=== PATIENT | female | born 1990 | race Caucasian/White ===

== ENCOUNTER 2019-01-19 08:06 | Emergency (ER) | payer MEDICAID ==
[2019-01-19 09:10] LABS: ABSOLUTE EOSINOPHILS # (AUTO) 0.1 10^3/uL (0.0-0.6); ABSOLUTE LYMPHOCYTES (AUTO) 2.4 10^3/uL (0.5-4.7); ABSOLUTE MONOCYTES (AUTO) 0.5 10^3/uL (0.1-1.4); ABSOLUTE NEUT (AUTO) 7.9 10^3/uL (1.7-8.2); BASOPHILS % (AUTO) 0.3 % (0-2); EOSINOPHILS % (AUTO) 0.7 % (0-6); HEMATOCRIT 35.2 % (36.0-47.0); HEMOGLOBIN 12.1 g/dL (12.0-15.5); LYMPHOCYTES % (AUTO) 21.9 % (13-45); MEAN CORPUSCULAR HEMOGLOBIN 30.5 pg (27.0-33.4); MEAN CORPUSCULAR HGB CONC 34.5 g/dL (32.0-36.0); MEAN CORPUSCULAR VOLUME 89 fl (80-97); PLATELET COUNT 234 10^3/uL (150-450); RED BLOOD COUNT 3.97 10^6/uL (3.72-5.28); RED CELL DISTRIBUTION WIDTH 12.8 % (11.5-14.0); SEGMENTED NEUTROPHILS % (AUTO) 72.1 % (42-78); TOTAL CELLS COUNTED % (AUTO) 100 %
[2019-01-19] MEDS ORDERED: METOCLOPRAMIDE HCL INJ/PF 10 MG/2 ML SDV IV ONE ×2 (09:21→11:01)
[2019-01-19] MEDS ORDERED: NORMAL SALINE 1000 ML 1,000 ML IV ONE (09:21)
[2019-01-19 09:38] LABS: APPEARANCE,URINE CLOUDY; BILIRUBIN,URINE NEGATIVE (NEGATIVE); COLOR,URINE AMBER; GLUCOSE, URINE NEGATIVE (NEGATIVE); KETONES,URINE NEGATIVE (NEGATIVE); LEUKOCYTE ESTERASE,URINE NEGATIVE (NEGATIVE); NITRITE,URINE POSITIVE (NEGATIVE); PROTEIN,URINE 100 mg/dL (NEGATIVE); URINE SPECIFIC GRAVITY 1.023
[2019-01-19 09:47] LABS: ALANINE AMINOTRANSFERASE 15 U/L (9-52); ALBUMIN 3.6 g/dL (3.5-5.0); ALKALINE PHOSPHATASE 52 U/L (38-126); ANION GAP 10 (5-19); ASPARTATE AMINO TRANSFERASE 18 U/L (14-36); BILIRUBIN,DIRECT 0.2 mg/dL (0.0-0.4); BILIRUBIN,TOTAL 0.4 mg/dL (0.2-1.3); BLOOD UREA NITROGEN 6 mg/dL (7-20); CALCIUM 9.3 mg/dL (8.4-10.2); CARBON DIOXIDE 22 mmol/L (22-30); CHLORIDE 104 mmol/L (98-107); GLUCOSE 119 mg/dL (75-110); LIPASE 117.8 U/L (23-300); POTASSIUM 3.5 mmol/L (3.6-5.0); SODIUM 135.9 mmol/L (137-145); TOTAL PROTEIN 6.4 g/dL (6.3-8.2)
[2019-01-19] MEDS ORDERED: CEFTRIAXONE 1 GM/D5W RTU 1 GM/50 ML RTUPB IV ONE (11:00)
[2019-01-19] MEDS ORDERED: MORPHINE SULFATE 10 MG/ML INJ IV ONE (11:01)
[2019-01-19] MEDS ORDERED: RINGERS SOLUTION,LACTATED 1,000 ML IV ONE (11:03)
--- NOTE | 2019-01-19 12:04 | RADIOLOGY REPORT (SQ) ---
EXAM DESCRIPTION: U/S RETROPERITON (RENAL/AORTA) COMPLETED DATE/TIME: 01/19/2019 11:42 am REASON FOR STUDY: right kidney pain, PMH kidney stones COMPARISON: None. TECHNIQUE: Dynamic and static grayscale images acquired of the kidneys and bladder and recorded on P ACS. Additional selected color Doppler and spectral images recorded. LIMITATIONS: None. FINDINGS: RIGHT KIDNEY: The right kidney measures 11.5 x 5.8 x 3.9 cm, normal size. Normal echogen icity. No solid or suspicious masses. Mild dilatation of the renal pelvis measures 1.5 cm. LEFT KIDNEY: Left kidney measures 11.6 x 4.7 x 4.6 cm, normal size. Normal echogenicity. No solid or suspicious masses. No hydronephrosis. No calcifications. BLADDER: The urinary bladder is empty. OTHER FINDINGS: The patient is 11 weeks . heart activity visualized. IMPRESSION: 1. The right renal pelvis is mildly dilated. 2. No evidence of hydronephrosis on the left. TECHNICAL DOCUMENTATION: JOB ID: [id number] [employer]- All Rights Reserved Reading location - IP/workstation name: [email or web address]
[2019-01-19 13:42] VITALS: BP 100/61
--- NOTE | 2019-01-19 18:58 | ER Document Report ---
Entered by TANISHA CHERRY SCRIBE 01/19/19 [id number] Acting as scribe for:SIMONE FERGUSON MD ED General - General Chief Complaint: Flank Pain Stated Complaint: FLANK PAIN Time Seen by Provider: 01/19/19 09:11 Primary Care Provider: KIM TRUJILLO MD [Primary Care Provider] - Follow up as needed Mode of Arrival: Ambulatory Information source: Patient Notes: Patient is a 28 year old female, currently 11 weeks , with a history of kidney stones presents to the emergency department complaining of multiple symptoms including right flank pain, urinary urgency and burning. Patient states she developed urinary urgency and burning around 0030, 2 days ago. Patient states she proceeded to take Azo and set up an appointment to see her doctor later this week. She states this morning, she developed severe, constant, sharp right flank pain and right lower quadrant abdominal pain. She also complains of vomiting but is unsure if it due to being or her new onset of symptoms. She denies any fevers. Patient is . TRAVEL OUTSIDE OF THE [place] IN LAST 30 DAYS: No - Related Data Allergies/Adverse Reactions: Penicillins Allergy (Mild, Verified 01/19/19 10:16) Generalized rash Past Medical History - General Information source: Patient - Social History Smoking Status: Unknown if Ever Smoked Chew tobacco use (# tins/day): No Frequency of alcohol use: None Drug Abuse: None Family History: Reviewed & Not Pertinent Patient has suicidal ideation: No Patient has homicidal ideation: No - Past Medical History Cardiac Medical History: Reports: Other - SVT Renal/ Medical History: Reports: Hx Kidney Stones - reports appearance of passing stone via CT scan Past Surgical History: Reports: Hx Cardiac Surgery - SVT subsequent laser ablation, Hx Gynecologic Surgery - leep, Hx Oral Surgery Review of Systems - Review of Systems Constitutional: No symptoms reported EENT: No symptoms reported Cardiovascular: No symptoms reported Respiratory: No symptoms reported Gastrointestinal: See HPI, Abdominal pain Genitourinary: See HPI, Burning, Flank pain, Urgency Female Genitourinary: No symptoms reported Musculoskeletal: No symptoms reported Skin: No symptoms reported Hematologic/Lymphatic: No symptoms reported Neurological/Psychological: No symptoms reported -: Yes All other systems reviewed and negative Physical Exam - Vital signs Vitals: Temp Pulse Resp BP Pulse Ox 97.8 F 120 H 20 111/69 100 01/19/19 08:16 01/19/19 08:16 01/19/19 08:16 01/19/19 08:16 01/19/19 08:16 - Notes Notes: GENERAL: Alert, interacts well. No acute distress. HEAD: Normocephalic, atraumatic. EYES: Pupils equal, round, and reactive to light. Extraocular movements intact. ENT: Oral mucosa moist, tongue midline. NECK: Full range of motion. Supple. Trachea midline. LUNGS: Clear to auscultation bilaterally, no wheezes, rales, or rhonchi. No respiratory distress. HEART: Regular rate and rhythm. No murmurs, gallops, or rubs. ABDOMEN: Soft, palpable gravid uterus.RLQ tenderness to palpation. Bowel sounds present in all 4 quadrants. No guarding, rigidity, or rebound. EXTREMITIES: Moves all 4 extremities spontaneously. NEUROLOGICAL: Alert and oriented x3. Normal speech. PSYCH: Normal affect, normal mood. SKIN: Warm, dry, normal turgor. No rashes or lesions noted. BACK: Right CVA tenderness to percussion. Course - Re-evaluation Re-evalutation: 01/19/19 13:34 The patient did not have any reaction to the IV Rocephin. The ultrasound showed mildly dilated right renal pelvis. I discussed this with the radiologist and she felt that it was likely physiologic hydronephrosis related to the , but that the patient should have urology follow-up. - Vital Signs Vital signs: Temp Pulse Resp BP Pulse Ox 97.8 F 120 H 20 111/69 100 01/19/19 08:16 01/19/19 08:16 01/19/19 08:16 01/19/19 08:16 01/19/19 08:16 - Laboratory Result Diagrams: 01/19/19 08:55 01/19/19 08:55 Laboratory results interpreted by me: 01/19/19 01/19/19 01/19/19 08:55 08:55 08:55 WBC 11.0 H Hct 35.2 L Sodium 135.9 L Potassium 3.5 L BUN 6 L Creatinine 0.39 L Glucose 119 H Serum HCG, Qual POSITIVE H Urine Protein Urine Blood Urine Nitrite Urine Urobilinogen 01/19/19 08:55 WBC Hct Sodium Potassium BUN Creatinine Glucose Serum HCG, Qual Urine Protein 100 H Urine Blood LARGE H Urine Nitrite POSITIVE H Urine Urobilinogen 4.0 H - Diagnostic Test Radiology reviewed: Reports reviewed - Right renal ultrasound shows a mildly dilated right renal pelvis, the left renal pelvis is not dilated. Discharge - Discharge Clinical Impression: Pyelonephritis affecting in first trimester Condition: Stable Disposition: HOME, SELF-CARE Additional Instructions: Pyelonephritis Your evaluation shows evidence of pyelonephritis. This is an infection in the kidney. Typical symptoms are fever, pain in the flank, pain on urination, and frequent urination. Many cases of pyelonephritis can be treated at home. Hospital care may be necessary for patients who are very ill, or elderly or . Pyelonephritis is treated with antibiotics. Be sure to take all the medication as prescribed. Drink plenty of liquids (about three quarts per day). You may take acetaminophen for fever. You should feel significantly improved within two days. You should have a recheck of your urine in about one week to insure that the infection is gone. Return for a re-examination if your symptoms worsen in any way -- such as high fever, shaking chills, severe weakness or dizziness, severe pain, or inability to pass your urine. Take the medications as prescribed. Drink plenty of fluids throughout the day in the evening for the next several days. Take Tylenol for your back pain as needed. Call [facility] office today to schedule an appointment this week to evaluate your right hydronephrosis. Follow-up with your primary care provider this week for recheck if you cannot get in to see the urologist. RETURN TO THE EMERGENCY ROOM IF ANY NEW OR WORSENING SYMPTOMS. Prescriptions: Cephalexin Monohydrate [Keflex 500 mg Capsule] 500 mg PO QID #28 capsule Referrals: [facility] [Provider Group] - Follow up in 3-5 days (Call today to schedule an appointment this week.) KIM TRJUILLO MD [Primary Care Provider] - Follow up in 3-5 days Scribe Attestation: 01/19/19 11:03 I personally performed the services described in the documentation, reviewed and edited the documentation which was dictated to the scribe in my presence, and it accurately records my words and actions. I personally performed the services described in the documentation, reviewed and edited the documentation which was dictated to the scribe in my presence, and it accurately records my words and actions.
== END 2019-01-19 13:55 | disposition home or self-care (01) ==
LOC: ER 08:06
DX: O23.01 Infections of kidney in pregnancy, first trimester (principal); O21.9 Vomiting of pregnancy, unspecified; O26.891 Other specified pregnancy related conditions, first trimester; R10.9 Unspecified abdominal pain; R39.15 Urgency of urination; R30.9 Painful micturition, unspecified; R10.31 Right lower quadrant pain; Z3A.11 11 weeks gestation of pregnancy
CPT/HCPCS: 96376; 99284; 96361; 96375; 96365; 36415; 87086; 83690; 84703; 85025; 87088; 80053; 81001; 87186; 76770; J2765; J2270; J7030; J7120; J0696

== ENCOUNTER 2019-06-22 11:31 | Outpatient (CLI) | payer MEDICAID ==
[2019-06-22 12:50] LABS: AMORPHOUS SEDIMENT,URINE TRACE /HPF; APPEARANCE,URINE CLOUDY; BILIRUBIN,URINE NEGATIVE (NEGATIVE); COLOR,URINE YELLOW; GLUCOSE, URINE NEGATIVE (NEGATIVE); KETONES,URINE NEGATIVE (NEGATIVE); LEUKOCYTE ESTERASE,URINE NEGATIVE (NEGATIVE); NITRITE,URINE NEGATIVE (NEGATIVE); PROTEIN,URINE NEGATIVE (NEGATIVE); UROBILINOGEN,URINE NEGATIVE mg/dL (<2.0)
[2019-06-22 13:16] LABS: URINE AMPHETAMINES SCREEN NEGATIVE; URINE BARBITURATES SCREEN NEGATIVE; URINE BENZODIAZEPINES SCREEN NEGATIVE; URINE COCAINE SCREEN NEGATIVE; URINE MARIJUANA (THC) SCREEN NEGATIVE; URINE METHADONE SCREEN NEGATIVE; URINE PHENCYCLIDINE SCREEN NEGATIVE
[2019-06-22] MEDS ORDERED: HYDROXYZINE PAMOATE 50 MG CAPSULE ONE (13:20)
[2019-06-22] MEDS ORDERED: HYDROXYZINE PAMOATE 25 MG CAPSULE PO ONE ×2 (13:31→14:00)
--- NOTE | 2019-06-22 14:17 | Non Stress Test Report ---
Non Stress Test Datetime Report Generated by CPN: 06/22/2019 14:17 DEMOGRAPHIC EGA NST: 33.3 INDICATION Indication for Study: Ordered by Provider Indication for Study (NST) Other: sent from office MONITORING Monitor Explained: Monitor Explained; Test Explained; Patient Verbalized Understanding Time on Monitor: 06/22/2019 12:10 Time off Monitor: 06/22/2019 13:16 NST Duration: 66 NST INTERVENTIONS NST Interventions: None Physician Notified NST: A Naik CNM BABY A: [id number] BABY A Movement : Present Contraction Frequency : irritability FHR Baseline : 135 Accelerations : 15X15 Decelerations : None Variability : Moderate 6-25bpm NST Review: Meets Criteria for Reactive NST NST Review and Verified By : D Bellavance RN NST Results: Reactive NST REPORT Report Trigger: Send Report
== END 2019-06-22 13:35 | disposition home or self-care (01) ==
LOC: LC 11:31
PROVIDERS: ATTEND Obstetrics & Gynecology
PROC: 4A1HXCZ Monitoring of Products of Conception, Cardiac Rate, External Approach (ICD-10-PCS; principal; 2019-06-22)
DX: O60.03 Preterm labor without delivery, third trimester (principal); Z3A.33 33 weeks gestation of pregnancy
CPT/HCPCS: 59025; 81001; 80307; J3490 ×2

== ENCOUNTER 2019-06-25 20:12 | Outpatient (CLI) | payer MEDICAID ==
[2019-06-25 20:51] LABS: APPEARANCE,URINE SLIGHTLY-CLOUDY; BILIRUBIN,URINE NEGATIVE (NEGATIVE); COLOR,URINE YELLOW; GLUCOSE, URINE NEGATIVE (NEGATIVE); KETONES,URINE TRACE mg/dL (NEGATIVE); LEUKOCYTE ESTERASE,URINE NEGATIVE (NEGATIVE); NITRITE,URINE NEGATIVE (NEGATIVE); PROTEIN,URINE NEGATIVE (NEGATIVE); URINE SPECIFIC GRAVITY 1.012; UROBILINOGEN,URINE NEGATIVE mg/dL (<2.0)
[2019-06-25 21:07] LABS: URINE AMPHETAMINES SCREEN NEGATIVE; URINE BARBITURATES SCREEN NEGATIVE; URINE BENZODIAZEPINES SCREEN NEGATIVE; URINE COCAINE SCREEN NEGATIVE; URINE MARIJUANA (THC) SCREEN NEGATIVE; URINE METHADONE SCREEN NEGATIVE; URINE PHENCYCLIDINE SCREEN NEGATIVE
== END 2019-06-25 22:02 | disposition home or self-care (01) ==
LOC: LC 20:12
PROVIDERS: ATTEND Obstetrics & Gynecology
PROC: 4A1HXCZ Monitoring of Products of Conception, Cardiac Rate, External Approach (ICD-10-PCS; principal; 2019-06-25)
DX: O47.03 False labor before 37 completed weeks of gestation, third trimester (principal); Z3A.34 34 weeks gestation of pregnancy
CPT/HCPCS: 59025; 80307; 81001

== ENCOUNTER 2019-08-03 10:43 | Outpatient (CLI) | payer MEDICAID ==
--- NOTE | 2019-08-03 10:45 | Non Stress Test Report ---
Non Stress Test Datetime Report Generated by CPN: 08/03/2019 10:45 DEMOGRAPHIC EGA NST: 33.6 INDICATION Indication for Study: Ordered by Provider MONITORING Monitor Explained: Monitor Explained; Test Explained; Patient Verbalized Understanding Time on Monitor: 06/25/2019 20:29 Time off Monitor: 06/25/2019 21:49 NST Duration: 80 NST INTERVENTIONS NST Interventions: PO Hydration Physician Notified NST: Brown BABY A: [id number] BABY A Movement : Present Contraction Frequency : 3-6 FHR Baseline : 125 Decelerations : None Variability : Moderate 6-25bpm NST Review: Meets Criteria for Reactive NST NST Review and Verified By : ORIANA Chavez NST Results: Reactive NST REPORT Report Trigger: Send Report
[2019-08-03 11:37] LABS: APPEARANCE,URINE CLEAR; BILIRUBIN,URINE NEGATIVE (NEGATIVE); COLOR,URINE YELLOW; GLUCOSE, URINE NEGATIVE (NEGATIVE); KETONES,URINE NEGATIVE (NEGATIVE); LEUKOCYTE ESTERASE,URINE NEGATIVE (NEGATIVE); NITRITE,URINE NEGATIVE (NEGATIVE); PROTEIN,URINE NEGATIVE (NEGATIVE); URINE SPECIFIC GRAVITY 1.006; UROBILINOGEN,URINE NEGATIVE mg/dL (<2.0)
[2019-08-03 11:52] LABS: URINE AMPHETAMINES SCREEN NEGATIVE; URINE BARBITURATES SCREEN NEGATIVE; URINE BENZODIAZEPINES SCREEN NEGATIVE; URINE COCAINE SCREEN NEGATIVE; URINE MARIJUANA (THC) SCREEN NEGATIVE; URINE METHADONE SCREEN NEGATIVE; URINE PHENCYCLIDINE SCREEN NEGATIVE
[2019-08-03] MEDS ORDERED: HYDROXYZINE PAMOATE 50 MG CAPSULE PO ONE (12:33)
[2019-08-03] MEDS ORDERED: HYDROXYZINE PAMOATE 50 MG CAPSULE ONE (12:34)
--- NOTE | 2019-08-03 12:38 | Non Stress Test Report ---
Non Stress Test Datetime Report Generated by CPN: 08/03/2019 12:37 DEMOGRAPHIC EGA NST: 39.3 INDICATION Indication for Study: Other - Please document "Reason for NST Other" in box below. Indication for Study (NST) Other: LC MONITORING Monitor Explained: Monitor Explained; Test Explained; Patient Verbalized Understanding Time on Monitor: 08/03/2019 10:59 NST INTERVENTIONS NST Interventions: PO Hydration Physician Notified NST: N Pardo CNM BABY A Movement : Present Contraction Frequency : irregular FHR Baseline : 125 Accelerations : 15X15 Decelerations : None Variability : Moderate 6-25bpm NST Review: Meets Criteria for Reactive NST NST Review and Verified By : Rita Purcell RN NST Results: Reactive NST REPORT Report Trigger: Send Report
== END 2019-08-03 12:40 | disposition home or self-care (01) ==
LOC: LC 10:43
PROVIDERS: ATTEND Obstetrics & Gynecology
PROC: 4A1HXCZ Monitoring of Products of Conception, Cardiac Rate, External Approach (ICD-10-PCS; principal; 2019-08-03)
DX: Z34.83 Encounter for supervision of other normal pregnancy, third trimester (principal); Z3A.39 39 weeks gestation of pregnancy
CPT/HCPCS: 59025; 81005; 80307; J3490

== ENCOUNTER 2019-08-09 06:19 | Outpatient (CLI) | payer MEDICAID ==
[2019-08-09 06:53] LABS: APPEARANCE,URINE CLEAR; BILIRUBIN,URINE NEGATIVE (NEGATIVE); COLOR,URINE STRAW; GLUCOSE, URINE NEGATIVE (NEGATIVE); KETONES,URINE NEGATIVE (NEGATIVE); LEUKOCYTE ESTERASE,URINE NEGATIVE (NEGATIVE); NITRITE,URINE NEGATIVE (NEGATIVE); PROTEIN,URINE NEGATIVE (NEGATIVE); URINE SPECIFIC GRAVITY 1.004; UROBILINOGEN,URINE NEGATIVE mg/dL (<2.0)
[2019-08-09 08:16] LABS: URINE AMPHETAMINES SCREEN NEGATIVE; URINE BARBITURATES SCREEN NEGATIVE; URINE BENZODIAZEPINES SCREEN NEGATIVE; URINE COCAINE SCREEN NEGATIVE; URINE MARIJUANA (THC) SCREEN NEGATIVE; URINE METHADONE SCREEN NEGATIVE; URINE PHENCYCLIDINE SCREEN NEGATIVE
--- NOTE | 2019-08-09 08:37 | Non Stress Test Report ---
Non Stress Test Datetime Report Generated by CPN: 08/09/2019 08:37 DEMOGRAPHIC EGA NST: 40.2 INDICATION Indication for Study: Ordered by Provider Indication for Study (NST) Other: LC VITAL SIGNS Temperature - NST: 98.5 Pulse - NST: 100 RESP - NST: 16 NBPSYS NST: 107 NBPDIA NST: 68 MONITORING Monitor Explained: Monitor Explained; Test Explained; Patient Verbalized Understanding Time on Monitor: 08/09/2019 06:50 Time off Monitor: 08/09/2019 07:40 NST Duration: 50 NST INTERVENTIONS NST Interventions: PO Hydration Physician Notified NST: A Naik CNM BABY A: [id number] BABY A Movement : Present Contraction Frequency : irregular FHR Baseline : 125 Accelerations : 15X15 Decelerations : None Variability : Moderate 6-25bpm NST Review: Meets Criteria for Reactive NST NST Review and Verified By : Rita Purcell RN NST Results: Reactive NST REPORT Report Trigger: Send Report
== END 2019-08-09 08:37 | disposition home or self-care (01) ==
LOC: LC 06:19
PROVIDERS: ATTEND Obstetrics & Gynecology
PROC: 4A1HXCZ Monitoring of Products of Conception, Cardiac Rate, External Approach (ICD-10-PCS; principal; 2019-08-09)
DX: O48.0 Post-term pregnancy (principal); Z3A.40 40 weeks gestation of pregnancy
CPT/HCPCS: 59025; 80307; 81005

== ENCOUNTER 2019-08-09 21:33 | Inpatient (IN) | payer MEDICAID ==
[2019-08-09] MEDS ORDERED: OXYTOCIN 10 UNIT/ML VIAL ONE (21:47)
[2019-08-09] MEDS ORDERED: MISOPROSTOL 0.2 MG TABLET ONE (21:48)
--- NOTE | 2019-08-09 22:18 | Admission Physical ---
Datetime Report Generated by CPN: 08/09/2019 22:18 ALLERGIES Medication Allergies: Yes Medication Allergies: Penicillins/[place]/Generalized umang (08/03/2019) Latex: No Latex Allergies Food Allergies: cinnamon OBSTETRICAL HISTORY EDC: 08/07/2019 00:00 : 3 Para: 2 Term: 2 : 0 SAB: 0 IAB: 0 Ectopic: 0 Livin Cesareans: 0 VBACs: 0 Multiple Births: 0 Gestational Diabetes: No Rh Sensitization: No Incompetent Cervix: No FOX: No Infertility: No ART Treatment: No Uterine Anomaly: No IUGR: No Hx Previous C/S: No Macrosomia: No Hx Loss/Stillborn: No PIH: No Hx : No Placenta Previa/Abruption: No Depression/PP Depression: No PTL/PROM: No Post Hemorrhage: Yes Current Procedures: Ultrasound; NST Obstetrical History Comments: G-1 2009 pp Hemorrhage G-2 2013 pp Hemorrhage g-3 current h/o LEEP 2015, 2014 cardiac ablation for SVT. pt cleared by cardiology SEE RECORDS Alcohol: No Marijuana : No Cocaine: No Other Illicit Drugs: No Cigarettes: Never Smoker. [id number] MEDICAL HISTORY Diabetes: No Blood Transfusion: No Pulmonary Disease (Asthma, TB): No Breast Disease: Yes Hypertension: No [employer] Surgery: Yes Heart Disease: Unknown Hosp/Surgery: Yes Autoimmune Disorder: No Anesthetic Complications: No Kidney Disease: No Abnormal Pap Smear: Yes Neuro/Epilepsy: No Psychiatric Disorders: No Other Medical Diseases: Yes Hepatitis/Liver Disease: No Significant Family History: No Varicosities/Phlebitis: No Trauma/Violence : No Thyroid Dysfunction: No Medical History Comments: lump right breast monitored yearly. Hospitalized for childbirth. Cardiac ablation, leep and wisdom teeth removal done as outpt. pt dx SVT and syncope with extreme pain on stress INFECTIOUS HISTORY Gonorrhea: No Genital Herpes: No Chlamydia: No Tuberculosis: No Syphilis: No Hepatitis: No HIV/AIDS Exposure: No Rash or Viral Illness: No HPV: No PHYSICAL EXAM General: Normal HEENT: Normal Neurologic: Normal Thyroid: Normal Heart: Normal Lungs: Normal Breast: Normal Back: Normal Abdomen: Normal Genitourinary Exam: Normal Extremities: Normal DTRs: Normal Pelvic Type: Adequate Vital Signs: Reviewed; Within Normal Limits FETUS A Admit Comment: delivered at home. please see delivery note for details. PLANS FOR LABOR AND DELIVERY Labor and Delivery: None Pain Management: Epidural Feeding Preference: Breast Benefit of Breast Feed Discussed: Yes Circumcision: N/A INFORMED CONSENT Signature: with User ID: [email or web address]
[2019-08-09] MEDS ORDERED: PROMETHAZINE HCL 25 MG TABLET PO PRN (22:25)
[2019-08-09] MEDS ORDERED: DIPH/PERTUSS(ACELL)/TETANUS VAC/PF 0.5 ML SYR (>=10YO) IM PRN (22:25)
[2019-08-09] MEDS ORDERED: BENZOCAINE/MENTHOL AEROSOL SPRAY 56 ML TOP PRN (22:25)
[2019-08-09] MEDS ORDERED: NA PHOS,M-B/NA PHOS,DI-BA (ADULT) 133 ML ENEMA PR PRN (22:25)
[2019-08-09] MEDS ORDERED: PSEUDOEPHEDRINE HCL 30 MG TABLET PO PRN (22:25)
[2019-08-09] MEDS ORDERED: ZOLPIDEM TARTRATE 5 MG TABLET PO PRN (22:25)
[2019-08-09] MEDS ORDERED: GLYCERIN/WITCH HAZEL LEAF 1 EACH MED..WIPE TP PRN (22:25)
[2019-08-09] MEDS ORDERED: DIPHENHYDRAMINE HCL 25 MG CAPSULE PO PRN (22:25)
[2019-08-09] MEDS ORDERED: ACETAMINOPHEN WITH CODEINE #3 TABLET PO PRN ×2 (22:25)
[2019-08-09] MEDS ORDERED: PROMETHAZINE HCL INJ 25 MG/1 ML VIAL IV PRN (22:25)
[2019-08-09] MEDS ORDERED: MAGNESIUM HYDROXIDE SUSP 30 ML UDCUP PO PRN (22:25)
[2019-08-09] MEDS ORDERED: ACETAMINOPHEN 650 MG SUPP.RECT PR PRN (22:25)
[2019-08-09] MEDS ORDERED: MEASLES,MUMPS&RUBELLA VACC/PF 0.5 ML VIAL SUBCUT PRN (22:25)
[2019-08-09] MEDS ORDERED: OXYTOCIN/NORMAL SALINE 20 UNIT/1,000 ML RTUINJ IV PRN (22:25)
[2019-08-09] MEDS ORDERED: DIBUCAINE 1% OINTMENT 56 GM TP PRN (22:25)
[2019-08-09] MEDS ORDERED: PROMETHAZINE HCL 25 MG SUPP.RECT PR PRN (22:25)
[2019-08-09 22:57] LABS: ABSOLUTE LYMPHOCYTES (AUTO) 2.1 10^3/uL (0.5-4.7); ABSOLUTE MONOCYTES (AUTO) 0.9 10^3/uL (0.1-1.4); ABSOLUTE NEUT (AUTO) 14.8 10^3/uL (1.7-8.2); BASOPHILS % (AUTO) 0.2 % (0-2); EOSINOPHILS % (AUTO) 0.1 % (0-6); HEMATOCRIT 35.8 % (36.0-47.0); LYMPHOCYTES % (AUTO) 11.8 % (13-45); MEAN CORPUSCULAR HEMOGLOBIN 30.7 pg (27.0-33.4); MEAN CORPUSCULAR HGB CONC 33.6 g/dL (32.0-36.0); MEAN CORPUSCULAR VOLUME 91 fl (80-97); MONOCYTES % (AUTO) 4.9 % (3-13); PLATELET COUNT 186 10^3/uL (150-450); RED BLOOD COUNT 3.92 10^6/uL (3.72-5.28); RED CELL DISTRIBUTION WIDTH 14.8 % (11.5-14.0); TOTAL CELLS COUNTED % (AUTO) 100 %; WHITE BLOOD COUNT 17.8 10^3/uL (4.0-10.5)
[2019-08-09] MEDS ORDERED: FAMOTIDINE 20 MG TABLET PO ONE (23:00)
[2019-08-09 23:49] LABS: APPEARANCE,URINE CLOUDY; BILIRUBIN,URINE NEGATIVE (NEGATIVE); COLOR,URINE RED; GLUCOSE, URINE NEGATIVE (NEGATIVE); KETONES,URINE 20 mg/dL (NEGATIVE); LEUKOCYTE ESTERASE,URINE TRACE (NEGATIVE); NITRITE,URINE NEGATIVE (NEGATIVE); PROTEIN,URINE 100 mg/dL (NEGATIVE); URINE SPECIFIC GRAVITY 1.008; UROBILINOGEN,URINE NEGATIVE mg/dL (<2.0)
[2019-08-10 00:21] LABS: URINE AMPHETAMINES SCREEN NEGATIVE; URINE BARBITURATES SCREEN NEGATIVE; URINE BENZODIAZEPINES SCREEN NEGATIVE; URINE COCAINE SCREEN NEGATIVE; URINE METHADONE SCREEN NEGATIVE; URINE PHENCYCLIDINE SCREEN NEGATIVE
[2019-08-10 00:32] LABS: URINE MARIJUANA (THC) SCREEN NEGATIVE
[2019-08-10] MEDS: IBUPROFEN 800 MG TABLET PO SCH ×3 (05:50→21:40)
[2019-08-10 06:59] LABS: HEMATOCRIT 32.1 % (36.0-47.0); HEMOGLOBIN 10.9 g/dL (12.0-15.5); MEAN CORPUSCULAR HEMOGLOBIN 31.1 pg (27.0-33.4); MEAN CORPUSCULAR HGB CONC 34.1 g/dL (32.0-36.0); MEAN CORPUSCULAR VOLUME 91 fl (80-97); PLATELET COUNT 168 10^3/uL (150-450); RED BLOOD COUNT 3.52 10^6/uL (3.72-5.28); RED CELL DISTRIBUTION WIDTH 14.7 % (11.5-14.0); WHITE BLOOD COUNT 16.5 10^3/uL (4.0-10.5)
[2019-08-10] MEDS: SENNOSIDES/DOCUSATE 8.6-50 MG 1 EACH TABLET PO SCH (09:03)
[2019-08-10] MEDS: DOCUSATE SODIUM 100 MG CAPSULE PO SCH ×2 (09:03→17:38)
[2019-08-10] MEDS: FERROUS SULFATE 325 MG TABLET PO SCH ×2 (09:03→17:38)
[2019-08-10] MEDS: PRENATAL VITAMIN W DHA CAPSULE PO SCH (09:03)
[2019-08-10] MEDS: FAMOTIDINE 20 MG TABLET PO SCH ×2 (09:03→21:40)
--- NOTE | 2019-08-10 10:41 | PDOC PROGRESS REPORT ---
Subjective-OB Progress Note for:: 08/10/19 Subjective: Pt doing well, no concerns. She reports light bleeding, reg diet and voiding without difficulty. Physical Exam (OB) Vital Signs: Temp Pulse Resp BP Pulse Ox 98.4 F 89 14 104/73 99 08/10/19 08:24 08/10/19 08:24 08/10/19 08:24 08/10/19 08:24 08/10/19 08:24 Intake & Output 08/09/19 08/10/19 08/11/19 06:59 06:59 06:59 Weight 49.895 kg - Lochia Lochia Amount: Scant < 10 ml Lochia Color: Rubra/Red - Abdomen Description: Firm Hernia Present: No Fundal Description: Firm Fundal Height: u/u - u/2 Objective-Diagnostic Laboratory: 08/10/19 06:27 08/09/19 08/09/19 08/09/19 22:45 22:45 23:10 WBC 17.8 H RBC 3.92 Hgb 12.0 Hct 35.8 L MCV 91 MCH 30.7 MCHC 33.6 RDW 14.8 H Plt Count 186 Seg Neutrophils % 83.0 H Urine Color RED Urine Appearance CLOUDY Urine pH 7.0 Ur Specific [place] 1.008 Urine Protein 100 H Urine Glucose (UA) NEGATIVE Urine Ketones 20 H Urine Blood LARGE H Urine Nitrite NEGATIVE Ur Leukocyte Esterase TRACE H Blood Type O POSITIVE Antibody Screen NEGATIVE 08/10/19 06:27 WBC 16.5 H RBC 3.52 L Hgb 10.9 L Hct 32.1 L MCV 91 MCH 31.1 MCHC 34.1 RDW 14.7 H Plt Count 168 Seg Neutrophils % Urine Color Urine Appearance Urine pH Ur Specific [place] Urine Protein Urine Glucose (UA) Urine Ketones Urine Blood Urine Nitrite Ur Leukocyte Esterase Blood Type Antibody Screen Assessment and Plan(PN) - Assessment and Plan (1) Encounter for care after unplanned out of hospital delivery Is this a current diagnosis for this admission?: Yes (2) Precipitous delivery Is this a current diagnosis for this admission?: Yes (3) Vaginal delivery Is this a current diagnosis for this admission?: Yes - Time Spent with Patient Time with patient: Less than 15 minutes Medications reviewed and adjusted accordingly: Yes - Disposition Anticipated Discharge: Home Within: within 24 hours
[2019-08-11] MEDS: IBUPROFEN 800 MG TABLET PO SCH ×2 (06:15→14:27)
[2019-08-11 09:19] VITALS: BP 101/63
[2019-08-11] MEDS: PRENATAL VITAMIN W DHA CAPSULE PO SCH (09:40)
[2019-08-11] MEDS: FAMOTIDINE 20 MG TABLET PO SCH (09:40)
[2019-08-11] MEDS: SENNOSIDES/DOCUSATE 8.6-50 MG 1 EACH TABLET PO SCH (09:41)
[2019-08-11] MEDS: FERROUS SULFATE 325 MG TABLET PO SCH ×2 (09:41→17:50)
[2019-08-11] MEDS: DOCUSATE SODIUM 100 MG CAPSULE PO SCH ×2 (09:41→17:50)
--- NOTE | 2019-08-11 12:20 | PDOC DISCHARGE SUMMARY ---
Impression - Admit/DC Date/PCP Admission Date/Primary Care Provider: 08/09/19 21:33 BHAVYA HOUSTON MD Discharge Date: 08/11/19 - Discharge Diagnosis (1) Anemia due to acute blood loss Is this a current diagnosis for this admission?: Yes (2) Encounter for care after unplanned out of hospital delivery Is this a current diagnosis for this admission?: Yes (3) Precipitous delivery Is this a current diagnosis for this admission?: Yes (4) Retained placenta or membranes without hemorrhage Is this a current diagnosis for this admission?: Yes (5) Vaginal delivery Is this a current diagnosis for this admission?: Yes - Additional Information Resuscitation Status: Full Code Discharge Diet: As Tolerated, Regular Discharge Activity: Activity As Tolerated, Balance Activity w/Rest, No Lifting Over 10 Pounds, Pelvic Rest, No tub bath, Walk Frequently Referrals: BHAVYA HOUSTON MD [Primary Care Provider] - Prescriptions: Docusate Sodium [Colace 100 mg Capsule] 100 mg PO BID #60 capsule Ferrous Sulfate [Feosol 325 mg Tablet] 325 mg PO BID #60 tablet Ibuprofen [Motrin 800 mg Tablet] 800 mg PO Q8H PRN #20 tab PRN Reason: Abdominal Cramping Home Medications: Pedi Mv No.79/Ferrous Fumarate [Flintstones with Iron Tab Chew] 18 mg PO DAILY 06/22/19 Docusate Sodium [Colace 100 mg Capsule] 100 mg PO BID #60 capsule 08/11/19 Ferrous Sulfate [Feosol 325 mg Tablet] 325 mg PO BID #60 tablet 08/11/19 Ibuprofen [Motrin 800 mg Tablet] 800 mg PO Q8H PRN #20 tab 08/11/19 Results Laboratory Results: WBC 16.5 10^3/uL (4.0-10.5) H 08/10/19 06:27 RBC 3.52 10^6/uL (3.72-5.28) L 08/10/19 06:27 Hgb 10.9 g/dL (12.0-15.5) L 08/10/19 06:27 Hct 32.1 % (36.0-47.0) L 08/10/19 06:27 MCV 91 fl (80-97) 08/10/19 06:27 MCH 31.1 pg (27.0-33.4) 08/10/19 06:27 MCHC 34.1 g/dL (32.0-36.0) 08/10/19 06:27 RDW 14.7 % (11.5-14.0) H 08/10/19 06:27 Plt Count 168 10^3/uL (150-450) 08/10/19 06:27 Lymph % (Auto) 11.8 % (13-45) L 08/09/19 22:45 [place] % (Auto) 4.9 % (3-13) 08/09/19 22:45 Eos % (Auto) 0.1 % (0-6) 08/09/19 22:45 Baso % (Auto) 0.2 % (0-2) 08/09/19 22:45 Absolute Neuts (auto) 14.8 10^3/uL (1.7-8.2) H 08/09/19 22:45 Absolute Lymphs (auto) 2.1 10^3/uL (0.5-4.7) 08/09/19 22:45 Absolute Monos (auto) 0.9 10^3/uL (0.1-1.4) 08/09/19 22:45 Absolute Eos (auto) 0.0 10^3/uL (0.0-0.6) 08/09/19 22:45 Absolute Basos (auto) 0.0 10^3/uL (0.0-0.2) 08/09/19 22:45 Seg Neutrophils % 83.0 % (42-78) H 08/09/19 22:45 Urine Color RED 08/09/19 23:10 Urine Appearance CLOUDY 08/09/19 23:10 Urine pH 7.0 (5.0-9.0) 08/09/19 23:10 Ur Specific [place] 1.008 08/09/19 23:10 Urine Protein 100 mg/dL (NEGATIVE) H 08/09/19 23:10 Urine Glucose (UA) NEGATIVE mg/dL (NEGATIVE) 08/09/19 23:10 Urine Ketones 20 mg/dL (NEGATIVE) H 08/09/19 23:10 Urine Blood LARGE (NEGATIVE) H 08/09/19 23:10 Urine Nitrite NEGATIVE (NEGATIVE) 08/09/19 23:10 Urine Bilirubin NEGATIVE (NEGATIVE) 08/09/19 23:10 Urine Urobilinogen NEGATIVE mg/dL (<2.0) 08/09/19 23:10 Ur Leukocyte Esterase TRACE (NEGATIVE) H 08/09/19 23:10 Urine Ascorbic Acid NEGATIVE (NEGATIVE) 08/09/19 23:10 Urine Opiates Screen NEGATIVE 08/09/19 23:10 Urine Methadone Screen NEGATIVE 08/09/19 23:10 Ur Barbiturates Screen NEGATIVE 08/09/19 23:10 Ur Phencyclidine Scrn NEGATIVE 08/09/19 23:10 Ur Amphetamines Screen NEGATIVE 08/09/19 23:10 U Benzodiazepines Scrn NEGATIVE 08/09/19 23:10 Urine Cocaine Screen NEGATIVE 08/09/19 23:10 U Marijuana (THC) Screen NEGATIVE 08/09/19 23:10 RPR NONREACTIVE (NONREACTIVE) 08/09/19 22:45 Blood Type O POSITIVE 08/09/19 22:45 Antibody Screen NEGATIVE 08/09/19 22:45
[2019-08-11] MEDS ORDERED: MEDROXYPROGESTERONE ACET INJ 150 MG/1 ML VIAL IM ONE (12:23)
--- NOTE | 2019-08-12 10:55 | Delivery Summary ---
Del Sum A-C Datetime Report Generated by CPN: 08/12/2019 10:54 DELIVERY PERSONNEL DELIVERY PERSONNEL: [id number] Delivery Doctor:: EMS MATERNAL INFORMATION Maternal Complications: Other Other Maternal Complications: delivered infant at home. brought in by EMS with retained placenta Complication Details: Delivery at home Provider Comments: placenta delivered intact membranes. uterine explaoration performed. assessed by Nursery staff on arrival. LABOR SUMMARY EDC: 08/07/2019 00:00 No. Babies in Womb: 1 Labor Anesthesia: None LABOR INFORMATION Reason for Induction: Not Applicable Group B Beta Strep: negative STAGES OF LABOR Stage 3 hr: 2 Stage 3 min: 10 VAGINAL DELIVERY Episiotomy: None Laceration Repair: Not Applicable BABY A INFORMATION Delivery Date/Time: 08/09/2019 20:10 Method of Delivery: Vaginal Born in Route : Yes : N/A Forceps: N/A Vacuum Extraction: N/A Shoulder Dystocia : No PRESENTATION/POSITION BABY A Presentation: Unable to Assess PLACENTA INFORMATION BABY A Placenta Delivery Time : 08/09/2019 22:20 Placenta Method of Delivery: Spontaneous Placenta Status: Delivered INFORMATION BABY A Gestational Age at Delivery: 40.2 Gestational Status: Full Term- 39- 40.6 Weeks Outcome : Liveborn Infant Condition : Stable Sex: Female IDENTIFICATION BABY A Verification Date/Time: 08/09/2019 22:25 ID Band Number: [id number] Mother's Name Verified: Yes RN Verifying Infant: D Bellavance RN/K Juan Jose RN WEIGHT/LENGTH BABY A Birthweight (gm): 3317 Weight (lb): 7 Weight (oz): 5 Infant Length (in): 20.75 Length (cm): 52.71 CORD INFORMATION BABY A No. Cord Vessels: 3 Cord Blood Taken: No-Annotate Infant Suction: None ASSESSMENT BABY A Skin to Skin: Yes SIGNATURES Signature: with User ID: [email or web address]
== END 2019-08-11 18:04 | disposition home or self-care (01) | DRG 812 ==
LOC: LR 21:33 → 2S 23:15
PROVIDERS: ADMIT Obstetrics & Gynecology; ATTEND Obstetrics & Gynecology
PROC: 10E0XZZ Delivery of Products of Conception, External Approach (ICD-10-PCS; principal; 2019-08-09)
DX: D62 Acute posthemorrhagic anemia (principal); O90.81 Anemia of the puerperium; O62.3 Precipitate labor; O73.0 Retained placenta without hemorrhage; Z88.0 Allergy status to penicillin; Z91.018 Allergy to other foods; Z3A.40 40 weeks gestation of pregnancy
CPT/HCPCS: 36415; 80307; 81005; 85025; 85027; 86592; 86850; 86900; 86901; J1050; J2590; J3490